=== PATIENT | female | born 1985 | race American Indian/Alaskan Native ===

== ENCOUNTER 2021-12-15 19:04 | Outpatient (CLI) | payer BC, MEDICAID ==
[2021-12-15] MEDS ORDERED: LACTATED RINGERS 1,000 ML IV ONE (19:46)
[2021-12-15 21:19] LABS: Amphetamine Screen,Urine PRESUMPTIVE NEGATIVE; Benzodiazepines Screen,Urine PRESUMPTIVE NEGATIVE; Cannabinoid Screen,Urine PRESUMPTIVE NEGATIVE; Cocaine Screen,Urine PRESUMPTIVE NEGATIVE; Methadone Screen,Urine PRESUMPTIVE NEGATIVE; Opiate Screen,Urine PRESUMPTIVE NEGATIVE
[2021-12-15 21:31] LABS: Bacteria,Urine 3+ /HPF (Negative); Hyaline Casts,Urine 1 /LPF; Mucus,Urine FEW /HPF
--- NOTE | 2021-12-15 21:33 | Ultrasound Report ---
ULTRASOUND OBSTETRIC INDICATION / CLINICAL INFORMATION: Pelvic pain.. - Clinical Gestational Age (GA) in weeks, days: 21, 5 TECHNIQUE: Transabdominal. COMPARISON: None available. FINDINGS: Single intrauterine . Biparietal Diameter = 5.1 cm = 21, 4 weeks, days Head Circumference = 19.2 cm = 21, 3 weeks, days Abdominal Circumference = 15.6 cm = 20, 5 weeks, days Femur Length = 3.7 cm = 21, 5 weeks, days Average Ultrasound Age (AUA) = 21, 3 weeks, days Heart Rate: 142 beats per minute. Estimated Weight in grams (if calculated): 409 +/- 61 g Estimated Weight Growth Percentile (if calculated): Position: cephalic. Cervix: Open with funneling. Length in cm (if measured): 2.5 Placenta: anterior, grade 1 and free of the os. Amniotic Fluid Volume: normal Amniotic Fluid Index (CARROLL) in cm (if calculated): . Maternal Adnexa: Not imaged. IMPRESSION: 1. Single, living intrauterine with estimated sonographic age of 21, 3 weeks, days. 2. Shortened cervix with funneling. The patient has cerclage wires. Signer Name: Hernan Sigala MD Signed: 12/15/2021 9:29 PM Workstation Name: [id number]
--- NOTE | 2021-12-15 21:37 | Ultrasound Report ---
ULTRASOUND ABDOMEN, COMPLETE INDICATION / CLINICAL INFORMATION: Abdominal pain. COMPARISON: None available. FINDINGS: PANCREAS: No significant abnormality. ABDOMINAL AORTA: No significant abnormality. IVC: No significant abnormality. LIVER: 15.5 cm in length with a normal echo pattern and no focal lesion. Normal hepatopedal blood valdemar w in the main portal vein. GALLBLADDER: No significant abnormality. BILE DUCTS: No significant abnormality. Common bile duct measures 5.1 mm. KIDNEYS: Right: No significant abnormality. Left: No significant abnormality. SPLEEN: No significant abnormality. FREE FLUID: None. ADDITIONAL FINDINGS: None. IMPRESSION: No significant sonographic abnormality of the abdomen. Signer Name: Hernan Sigala MD Signed: 12/15/2021 9:32 PM Workstation Name: [id number]
[2021-12-15 21:51] LABS: Bilirubin,Urine Negative (Negative); Blood,Urine Small (Negative); Color,Urine Yellow (Yellow)
[2021-12-15 21:52] LABS: Urobilinogen,Urine < 2.0 mg/dL (<2.0)
[2021-12-15 23:00] LABS: Hematocrit 30.5 % (30.3-42.9); Hemoglobin 10.1 gm/dl (10.1-14.3); Mean Corpuscular HGB Conc 33 % (30-34); Mean Corpuscular Volume 89 fl (79-97); Platelet Count 262 K/mm3 (140-440); Red Blood Count 3.42 M/mm3 (3.65-5.03); Red Cell Distribution Width 14.9 % (13.2-15.2)
[2021-12-15 23:22] LABS: Alanine Aminotransferase 9 units/L (7-56); Albumin 3.4 g/dL (3.9-5); Blood Urea Nitrogen 7 mg/dL (7-17); Calcium 8.8 mg/dL (8.4-10.2); Hemolysis Index 7
[2021-12-15 23:26] LABS: BUN/Creatinine Ratio 18
[2021-12-15] MEDS ORDERED: ACETAMINOPHEN 500 MG TAB PO STA (23:34)
[2021-12-15 23:42] VITALS: BP 124/73
== END 2021-12-16 00:15 | disposition home or self-care (01) ==
LOC: TRG 19:04 → APU 19:05 → TRG 12-16 00:15
PROVIDERS: ATTEND Obstetrics & Gynecology
DX: O26.892 Other specified pregnancy related conditions, second trimester (principal); R10.9 Unspecified abdominal pain; Z3A.21 21 weeks gestation of pregnancy
CPT/HCPCS: 36415; 76700; 76816; 80053; 80307; 81001; 82150; 83690; 85027